=== PATIENT | female | born 1950 | race Asian ===

== ENCOUNTER 2017-10-09 14:25 | Outpatient (CLI) | payer OTHER ==
[2017-10-09 15:09] LABS: PLATELET COUNT 384 K/uL (152-353)
[2017-10-09 15:44] LABS: POTASSIUM 4.2 mmol/L (3.6-5.2); SODIUM 134 mmol/L (136-145)
[2017-12-05] MEDS ORDERED: ACID REDUCER150 M1 PO (16:51)
[2017-12-05] MEDS ORDERED: LIPITOR20 MG PO (16:54)
[2017-12-05] MEDS ORDERED: GABA300C2 PO (16:54)
[2017-12-05] MEDS ORDERED: MONTELUKAST SOD10 MG PO (16:55)
== END 2017-10-09 19:05 | disposition home or self-care (01) ==
LOC: LAB 14:25
PROVIDERS: Nurse Practitioner Family
DX: D50.9 Iron deficiency anemia, unspecified (principal); I10 Essential (primary) hypertension; E87.6 Hypokalemia; Z00.00 Encounter for general adult medical examination without abnormal findings; R53.83 Other fatigue; R53.81 Other malaise; E11.9 Type 2 diabetes mellitus without complications
CPT/HCPCS: 80053; 80061; 83036; 84436; 84443; 85027

== ENCOUNTER 2018-03-13 14:49 | Outpatient (CLI) | payer OTHER ==
[~2018-03-13 14:49] MED LIST: ACID REDUCER150 M1 PO; GABA300C2 PO; LIPITOR20 MG PO; MONTELUKAST SOD10 MG PO
[2018-03-13 16:44] LABS: PLATELET COUNT 302 K/uL (152-353)
[2018-03-13 16:54] LABS: POTASSIUM 3.8 mmol/L (3.6-5.2)
== END 2018-03-13 21:50 | disposition home or self-care (01) ==
LOC: LAB 14:49
PROVIDERS: Nurse Practitioner Family
DX: E11.9 Type 2 diabetes mellitus without complications (principal); I10 Essential (primary) hypertension; R53.83 Other fatigue; R53.81 Other malaise; K21.9 Gastro-esophageal reflux disease without esophagitis
CPT/HCPCS: 80053; 80061; 83036; 84436; 84443; 85027

== ENCOUNTER 2019-09-23 09:04 | Outpatient (CLI) | payer OTHER ==
[2019-09-23 09:29] LABS: PLATELET COUNT 348 K/uL (152-353)
[2019-09-23 15:20] LABS: POTASSIUM 3.3 mmol/L (3.6-5.2)
== END 2019-09-23 20:32 | disposition home or self-care (01) ==
LOC: LABW 09:04
PROVIDERS: Nurse Practitioner Family
DX: Z00.00 Encounter for general adult medical examination without abnormal findings (principal); E11.9 Type 2 diabetes mellitus without complications; K21.9 Gastro-esophageal reflux disease without esophagitis; M19.90 Unspecified osteoarthritis, unspecified site; I10 Essential (primary) hypertension; R53.81 Other malaise; Z79.899 Other long term (current) drug therapy; R06.09 Other forms of dyspnea
CPT/HCPCS: 36415; 80053; 80061; 83036; 83880; 84439; 84443; 85027

== ENCOUNTER 2019-12-04 10:06 | Outpatient (CLI) | payer OTHER ==
[2019-12-04 10:43] LABS: PLATELET COUNT 388 K/uL (152-353)
[2019-12-04 11:06] LABS: POTASSIUM 3.7 mmol/L (3.6-5.2)
== END 2019-12-04 20:19 | disposition home or self-care (01) ==
LOC: LABW 10:06
PROVIDERS: Nurse Practitioner Family
DX: I10 Essential (primary) hypertension (principal); K21.9 Gastro-esophageal reflux disease without esophagitis; E11.9 Type 2 diabetes mellitus without complications; M19.90 Unspecified osteoarthritis, unspecified site; D64.89 Other specified anemias
CPT/HCPCS: 36415; 80053; 85027

== ENCOUNTER 2020-05-06 17:06 | Emergency (ER) | payer OTHER ==
[~2020-05-06] VITALS: Ht 162.6 cm; Wt 125.2 kg
[2020-05-06 18:26] LABS: PLATELET COUNT 335 K/uL (152-353)
[2020-05-06 18:31] LABS: POTASSIUM 3.2 mmol/L (3.6-5.2)
[2020-05-06 19:30] VITALS: BP 134/81; TEMP 98.2
== END 2020-05-06 19:30 | disposition home or self-care (01) ==
LOC: ED 17:13
PROVIDERS: Hospitalist
DX: K59.09 Other constipation (principal); R10.84 Generalized abdominal pain; E87.6 Hypokalemia
CPT/HCPCS: 36415; 80053; 82150; 83690; 85027; 96360; 96375; 99284; J1885; J2405

== ENCOUNTER 2022-04-25 14:37 | Observation (INO) | payer OTHER ==
[2022-04-25] VITALS (7 sets, daily range): BP systolic 115–211; BP diastolic 93–116; TEMP 97.9
[~2022-04-25] VITALS: Ht 162.6 cm; Wt 125.2 kg
[2022-04-25 15:11] LABS: PLATELET COUNT 328 K/uL (152-353)
[2022-04-25 15:25] LABS: POTASSIUM 2.9 mmol/L (3.6-5.2)
== END 2022-04-25 19:30 | disposition short-term general hospital (02) ==
LOC: ED 14:48 → MED/SURG 17:00
PROVIDERS: ADMIT Emergency Medicine; ATTEND Internal Medicine
DX: G40.802 Other epilepsy, not intractable, without status epilepticus (principal); E11.65 Type 2 diabetes mellitus with hyperglycemia; Z79.4 Long term (current) use of insulin; E87.6 Hypokalemia; I10 Essential (primary) hypertension
CPT/HCPCS: 36600; 80053; 82805; 83880; 84484; 85027; 85610; 85730; 87635; 96360; 96361; 96365; 96375; 99220; 99284; G0378; J0360; J1815; J2060; J2405; J3490; U0003